=== PATIENT | female | born 1970 | race Caucasian/White ===

== ENCOUNTER 2016-08-27 15:49 | Outpatient (CLI) | payer BC, OTHER | END 2016-08-27 15:50 | disposition home or self-care (01) | DX: R07.89 Other chest pain (principal) ==

== ENCOUNTER 2021-12-10 18:45 | Outpatient (CLI) | payer OTHER ==
--- NOTE | 2021-12-11 15:30 | Ultrasound Report ---
PROCEDURE: Pelvic w/Transvaginal INDICATIONS: ABN UTERINE BLEED TECHNIQUE: Real-time scanning was performed of the pelvic organs, with image documentation. Additional endovagi nal scanning was necessary due to incomplete visualization of the adnexal and endometrial structures by transabdominal scanning. COMPARISON: None. FINDINGS: Limited scanning through the kidneys shows no hydronephrosis. No pathologic free abdominal or pelvic fluid. Uterus: Uterus is normal in size at 9.0 x 4.0 x 4.9 cm. The endometrium measures 8 mm in combined t hickness. Uterine echotexture is heterogeneous. No focal intrauterine mass. Nabothian cysts are note d in the cervix. Ovaries: Right ovary measures 2.5 x 1.2 x 1.4 cm with ovarian volume of 2.1 cm. Left ovary measures 1.7 x 0.7 x 2.0 cm with ovarian volume of 1.3 cm. Other: No free pelvic fluid. IMPRESSION: No acute sonographic abnormalities identified in the pelvis. No abnormalities identified to explain patient's history of abnormal uterine bleeding. Reviewed by: Priyank Gifford MD on 12/11/2021 3:29 PM PDT Approved by: Priyank Gifford MD on 12/11/2021 3:29 PM PDT Station ID: [id number]
== END 2021-12-10 18:46 | disposition home or self-care (01) ==
LOC: DI 18:45
PROVIDERS: ATTEND Obstetrics & Gynecology
DX: N93.9 Abnormal uterine and vaginal bleeding, unspecified (principal)

== ENCOUNTER 2022-07-09 08:00 | Outpatient (CLI) | payer OTHER ==
[2022-07-10 00:14] LABS: BACTERIAL VAGINOSIS DNA NEGATIVE (NEGATIVE); CANDIDA GLABRATA DNA NEGATIVE (NEGATIVE); CANDIDA GROUP DNA NEGATIVE (NEGATIVE); CANDIDA KRUSEI DNA NEGATIVE (NEGATIVE); TRICHOMONAS VAGINALIS DNA NEGATIVE (NEGATIVE)
== END 2022-07-09 23:59 | disposition home or self-care (01) ==
LOC: LAB 08:00
PROVIDERS: ATTEND Nurse Practitioner
DX: R10.2 Pelvic and perineal pain (principal)
CPT/HCPCS: 81514

== ENCOUNTER 2022-08-06 07:58 | Outpatient (CLI) | payer OTHER ==
[2022-08-06] MEDS ORDERED: iohexoL-300 100 ML VIAL ONE (08:01)
[2022-08-06] MEDS ORDERED: DIATRIZOATE MEGLU/DIATRIZO SOD 30 ML BOTTLE PO ONE ×2 (08:01→12:05)
[2022-08-06] MEDS ORDERED: iohexoL-300 100 ML VIAL IVP ONE (12:06)
--- NOTE | 2022-08-06 13:27 | CT Report ---
PROCEDURE: ABDOMEN/PELVIS W INDICATIONS: RIGHT SIDE UMBILLICUS PAIN CONTRAST: 100ml OMnipaque 300 TECHNIQUE: After the administration of oral and IV contrast, 5 mm thick sections acquired from the diaphragms to the symphysis. 5 mm thick coronal and sagittal reformats were acquired. For radiation dose reducti on, the following was used: automated exposure control, adjustment of mA and/or kV according to earl ent size. COMPARISON: Ultrasound pelvis, 12/10/2021. FINDINGS: Image quality: Excellent. ABDOMEN: Lung bases: Lung bases are clear. Heart size is normal. Partial visualization of left breast impla nt. Solid organs: There are small indeterminate hepatic hypodensities. Liver and spleen are normal in si ze and enhancement. Gallbladder is normal. Biliary system is non dilated. Pancreas enhances normal ly. No adrenal nodules. Kidneys demonstrate normal size and enhancement, without hydronephrosis. Peritoneum and bowel: Bowel loops demonstrate normal wall thickness and caliber. There is a moderate amount stool in colon. No free fluid or air. Nodes and vessels: No retroperitoneal or mesenteric adenopathy by size criteria. Aorta and inferior vena cava are normal in size. Miscellaneous: No ventral hernias. Mild stranding in the area of the umbilicus. No umbilical hernia . PELVIS: Genitourinary: Bladder wall thickness is normal. Miscellaneous: No inguinal hernias or adenopathy. Bones: No suspicious bony lesions. No vertebral body compression fractures. There is a indetermina te sclerotic focus in the proximal femur, probably a bone widened. IMPRESSION: 1. There is subtle nonspecific stranding in the umbilicus. No umbilical hernia or periumbilical mass. 2. Small hepatic hypodensities. Statistically, these are most likely hepatic cysts but too small to f arias characterize, therefore, considered indeterminate. 3. A moderate amount of stool in colon. Reviewed by: Char Pierce MD on 08/06/2022 1:26 PM PST Approved by: Char Pierce MD on 08/06/2022 1:26 PM PST Station ID: [id number]
== END 2022-08-06 07:59 | disposition home or self-care (01) ==
LOC: DI 07:58
PROVIDERS: ATTEND Physician Assistant
DX: R10.9 Unspecified abdominal pain (principal)
CPT/HCPCS: 74177; Q9963; Q9967

== ENCOUNTER 2024-05-10 09:30 | Outpatient (CLI) | payer OTHER ==
[2024-05-10 18:03] LABS: BASOPHILS # (AUTO) 0.1 10^3/uL (0.0-0.1); BASOPHILS % (AUTO) 1.1 %; EOSINOPHILS # (AUTO) 0.2 10^3/uL (0.0-0.7); EOSINOPHILS % (AUTO) 3.3 %; HCT - HEMATOCRIT 48.5 % (37.0-47.0); HGB - HEMOGLOBIN 16.2 g/dL (12.0-16.0); LYMPHOCYTES # (AUTO) 1.6 10^3/uL (1.5-3.5); LYMPHOCYTES % (AUTO) 30.2 %; MEAN CORPUSCULAR HEMOGLOBIN 31.5 pg (27.0-31.0); MEAN CORPUSCULAR HGB CONC 33.4 g/dL (32.0-36.0); MEAN CORPUSCULAR VOLUME 94.2 fL (81.0-99.0); MEAN PLATELET VOLUME 9.4 fL (7.9-10.8); MONOCYTES # (AUTO) 0.4 10^3/uL (0.0-1.0); MONOCYTES % (AUTO) 6.6 %; NEUTROPHILS # (AUTO) 3.2 10^3/uL (1.5-6.6); NEUTROPHILS % (AUTO) 58.6 %; PLT - PLATELET COUNT 258 10^3/uL (130-450); RED BLOOD COUNT 5.15 10^6/uL (4.20-5.40); RED CELL DISTRIBUTION WIDTH 12.1 % (12.0-15.0); WHITE BLOOD COUNT 5.4 x10^3/uL (4.8-10.8)
[2024-05-10 18:13] LABS: RHEUMATOID FACTOR NEGATIVE (Negative)
[2024-05-10 18:18] LABS: ALBUMIN/GLOBULIN RATIO 1.6 (1.0-2.2); ALKALINE PHOSPHATASE 63 IU/L (42-121); ALT ALANINE AMINOTRANSFERASE 14 IU/L (10-60); AST ASPARTATE AMINOTRANSFERASE 21 IU/L (10-42); BILIRUBIN,TOTAL 0.7 mg/dL (0.2-1.0); BUN - BLOOD UREA NITROGEN 16 mg/dL (6-20); CALCIUM 10.1 mg/dL (8.5-10.3); CARBON DIOXIDE - CO2 30 mmol/L (21-32); CHLORIDE 104 mmol/L (101-111); CHOL/HDL RATIO 2.5 (<4.4); CHOLESTEROL 205 mg/dL; GFR - MDRD 58 (>89); GLUCOSE 90 mg/dL (74-104); HDL CHOLESTEROL 83 mg/dL; LDL CHOLESTEROL,CALCULATED 107 mg/dL; LDL/HDL RATIO 1.3 (<4.4); POTASSIUM 4.1 mmol/L (3.5-4.5); SODIUM 140 mmol/L (135-145); TOTAL PROTEIN 8.1 g/dL (6.4-8.9); TRIGLYCERIDES 75 mg/dL; VLDL CHOLESTEROL 15 mg/dL
[2024-05-10 18:26] LABS: THYROID STIMULATING HORMONE 2.07 uIU/mL (0.34-5.60)
== END 2024-05-10 09:45 | disposition home or self-care (01) ==
LOC: LAB.N 09:30
PROVIDERS: ATTEND Nurse Practitioner Family
DX: Z00.00 Encounter for general adult medical examination without abnormal findings (principal); Z13.220 Encounter for screening for lipoid disorders; M79.10 Myalgia, unspecified site; M25.50 Pain in unspecified joint
CPT/HCPCS: 36415; 80053; 80061; 83721; 84443; 85025; 85651; 86038; 86430